=== PATIENT | female | born 1990 | race Caucasian/White ===

== ENCOUNTER 2018-10-30 22:51 | Emergency (ER) | payer OTHER, SELFPAY ==
[~2018-10-30] VITALS: Ht 144.8 cm; Wt 94.5 kg
[~2018-10-30 22:51] MED LIST: IBUP80TA PO
[2018-10-31 00:07] LABS: BASO # 0.1 10^3/uL (0.0-0.2); BASO % 0.5 % (0.0-1.0); EOS # 0.3 10^3/uL (0.0-0.50); EOS % 2.7 % (0.0-3.0); HEMATOCRIT 36.1 % (36.0-47.0); HEMOGLOBIN 11.8 g/dl (12.0-15.5); LYMPH # 3.2 10^3/uL (1.5-6.5); LYMPH % 26.5 % (24.0-44.0); MEAN CORPUSCULAR HEMOGLOBIN 28.7 pg (27.0-33.0); MEAN CORPUSCULAR HGB CONC 32.7 g/dl (32.0-36.5); MEAN CORPUSCULAR VOLUME 87.8 fl (80.0-96.0); MONO # 0.5 10^3/uL (0.0-0.8); MONO % 4.5 % (0.0-5.0); NEUTROPHILS # 7.8 10^3/uL (1.8-7.7); NEUTROPHILS % 65.4 % (36.0-66.0); PLATELET COUNT, AUTOMATED 357 10^3/uL (150-450); RED BLOOD COUNT 4.11 10^6/uL (4.00-5.40); WHITE BLOOD COUNT 11.9 10^3/uL (4.0-10.0)
[2018-10-31] MEDS ORDERED: NS 1,000 ML IV ONE (00:15)
[2018-10-31 00:30] LABS: ALBUMIN 3.1 GM/DL (3.2-5.2); ALT/SGPT 20 U/L (12-78); BILIRUBIN,DIRECT < 0.1 MG/DL (0.0-0.2); BILIRUBIN,TOTAL 0.3 MG/DL (0.2-1.0); LIPASE 110 U/L (73-393); TOTAL PROTEIN 7.1 GM/DL (6.4-8.2)
[2018-10-31] MEDS ORDERED: PANTOPRAZOLE 40MG INJ (PROTONIX) (C9113) IV ONE (00:45)
[2018-10-31] MEDS ORDERED: ONDANSETRON 4MG/2ML VIAL (J2405) IV ONE (00:45)
[2018-10-31] MEDS ORDERED: GI COCKTAIL 50ML BTL(HYOSCYAMINE/MAALOX/LIDOCAINE VISCOUS)(1:3:1) PO ONE (00:45)
[2018-10-31 01:16] LABS: INR 1.08; PROTHROMBIN TIME 13.7 SECONDS (11.8-14.0)
[2018-10-31 01:17] LABS: PARTIAL THROMBOPLASTIN TIME 31.1 SECONDS (25.0-38.4)
[2018-10-31 02:22] VITALS: BP 111/59
== END 2018-10-31 02:24 | disposition home or self-care (01) ==
LOC: M ED 22:51
DX: R00.2 Palpitations (principal); R06.02 Shortness of breath; R11.2 Nausea with vomiting, unspecified; R56.9 Unspecified convulsions; D68.51 Activated protein C resistance; Z88.8 Allergy status to other drugs, medicaments and biological substances; Z98.2 Presence of cerebrospinal fluid drainage device
CPT/HCPCS: 36415; 80047; 80076; 81001; 83690; 84702; 85025; 85379; 85610; 85730; 96361; 96374; 96375; 99284; C9113; J2405

== ENCOUNTER 2019-06-12 19:28 | Emergency (ER) | payer OTHER ==
[~2019-06-12] VITALS: Ht 144.8 cm; Wt 99.8 kg
[2019-06-12 19:28] VITALS: BP 133/62
[2019-06-12] MEDS ORDERED: METOCLOPRAMIDE INJ 10MG/2ML VIAL (J2765) IV ONE (20:00)
[2019-06-12] MEDS ORDERED: NS 500 ML IV ONE (20:00)
--- NOTE | 2019-06-12 20:37 | REPVR ---
PROCEDURE INFORMATION: Exam: CT Head Without Contrast Exam date and time: 06/12/2019 8:09 PM Age: 29 years old Clinical indication: Device placement; Cerebral fluid drainiage device or shunt; Prior surgery; Surgery date: 6+ months; Additional info: DOBBINS with shunt TECHNIQUE: Imaging protocol: Computed tomography of the head without contrast. Axial and coronal reformatted images were created and reviewed. Radiation optimization: All CT scans at this facility use at least one of these dose optimization techniques: automated exposure control; mA and/or kV adjustment per patient size (includes targeted exams where dose is matched to clinical indication); or iterative reconstruction. COMPARISON: CT Head without contrast 07/17/2018 4:02 PM FINDINGS: Brain: No CT evidence of acute intracranial hemorrhage or acute territorial infarction. No significant mass effect or midline shift. Basal cisterns patent. Ventricles: Unchanged right transfrontal ventriculostomy catheter and stable appearance of the ventricles. No hydrocephalus. Bones/joints: No acute osseous abnormality. Sinuses: Grossly unremarkable. Mastoid air cells: Grossly unremarkable. Soft tissues: Grossly unremarkable. IMPRESSION: No acute intracranial abnormality. Electronically signed by: Franklin Albrecht On 06/12/2019 20:33:53 PM
[2019-06-12 21:07] LABS: HEMATOCRIT 42.4 % (36.0-47.0); HEMOGLOBIN 13.2 g/dl (12.0-15.5); MEAN CORPUSCULAR HEMOGLOBIN 28.3 pg (27.0-33.0); MEAN CORPUSCULAR HGB CONC 31.1 g/dl (32.0-36.5); PLATELET COUNT, AUTOMATED 369 10^3/uL (150-450); RED BLOOD COUNT 4.66 10^6/uL (4.00-5.40); WHITE BLOOD COUNT 11.4 10^3/uL (4.0-10.0)
[2019-06-12 21:20] LABS: INR 1.03; PROTHROMBIN TIME 13.2 SECONDS (11.8-14.0)
[2019-06-12 21:31] LABS: BLOOD UREA NITROGEN 14 MG/DL (7-18); CALCIUM LEVEL 8.8 MG/DL (8.5-10.1); CARBON DIOXIDE LEVEL 30 MEQ/L (21-32); CHLORIDE LEVEL 108 MEQ/L (98-107); CREATININE FOR GFR 0.63 MG/DL (0.55-1.30); GLOMERULAR FILTRATION RATE > 60.0 (>60); GLUCOSE, FASTING 103 MG/DL (70-100); SODIUM LEVEL 142 MEQ/L (136-145)
[2019-06-12] MEDS ORDERED: REGL10TA6 PO (21:49)
--- NOTE | 2019-06-13 09:17 | REP ---
Clinical: Headache. Technique: Standard shunt series (six total views) Findings: A ventriculoperitoneal shunt is identified with proximal shunt extending to the region of the right lateral ventricle via right frontal bone approach. Shunt catheter courses along the right side of the calvarium, neck, the lateral chest wall and into the right lower abdomen before angling cranially with its tip extending along the dome of the liver. Catheter appears intact and without fracture or acute angulation to suggest obstruction. Impression: Ventriculoperitoneal shunt catheter as described above appears continuous and without fracture or mechanical obstruction. Electronically Signed by Ha Chow MD 06/13/2019 09:08 A
== END 2019-06-12 22:04 | disposition home or self-care (01) ==
LOC: M ED 19:28
DX: G43.909 Migraine, unspecified, not intractable, without status migrainosus (principal); H53.71 Glare sensitivity; H53.10 Unspecified subjective visual disturbances; R11.0 Nausea; Z98.2 Presence of cerebrospinal fluid drainage device; Z88.8 Allergy status to other drugs, medicaments and biological substances
CPT/HCPCS: 36415; 70450; 75809; 80048; 85027; 85610; 96361; 96374; 99284; J2765

== ENCOUNTER → 2022-01-15 | Outpatient (CLI) | payer OTHER ==
[~2022-01-15] MED LIST changes: +REGL10TA6 PO
[2022-01-15 15:23] LABS: HEMOGLOBIN 11.3 g/dl (12.0-15.5); MEAN CORPUSCULAR HEMOGLOBIN 28.8 pg (27.0-33.0); MEAN CORPUSCULAR HGB CONC 32.3 g/dl (32.0-36.5); MEAN CORPUSCULAR VOLUME 89.1 fl (80.0-96.0); PLATELET COUNT, AUTOMATED 387 10^3/uL (150-450); RED BLOOD COUNT 3.93 10^6/uL (4.00-5.40)
== END ==
LOC: M PLALAB 12:05
PROVIDERS: ATTEND Obstetrics & Gynecology Obstetrics
DX: Z34.02 Encounter for supervision of normal first pregnancy, second trimester (principal)

== ENCOUNTER 2022-12-23 12:42 | Day surgery (SDC) | payer OTHER ==
[~2022-12-23] VITALS: Ht 144.8 cm; Wt 108.7 kg
[~2022-12-23 12:42] MED LIST changes: +AMOX875T2 PO; +HYDR-3363 PO; +NS 1,000 ML IV ONE; +OMEP40CA4 PO; +PANT40TA29 PO; +TRIA55AE2 INH; +VENTAER INH; +ZOLO50TA PO; +[UNRECOGNIZED DRUG - OTHER]
[2022-12-23] MEDS ORDERED: LIDOCAINE 2% 100MG/5ML SDV (FOR ANES.) As Ordered ONE (14:19)
[2022-12-23] MEDS ORDERED: propofoL 200 MG/20 ML VIAL As Ordered ONE ×2 (14:19→14:36)
[2022-12-23 15:05] VITALS: BP 136/59; O2SAT 97
== END 2022-12-23 15:15 | disposition home or self-care (01) ==
LOC: M OPP 12:42
PROVIDERS: ATTEND Internal Medicine Gastroenterology
DX: K21.00 Gastro-esophageal reflux disease with esophagitis, without bleeding (principal); K29.70 Gastritis, unspecified, without bleeding; K22.89 Other specified disease of esophagus; Z79.2 Long term (current) use of antibiotics; Z79.51 Long term (current) use of inhaled steroids; Z79.52 Long term (current) use of systemic steroids; Z79.899 Other long term (current) drug therapy; Z88.8 Allergy status to other drugs, medicaments and biological substances

== ENCOUNTER → 2023-04-11 | Outpatient (CLI) | payer OTHER ==
[~2023-04-11] MED LIST changes: -NS 1,000 ML IV ONE
== END ==
LOC: M SLEEP HO 10:24
PROVIDERS: ATTEND Nurse Practitioner Adult Health
DX: G47.30 Sleep apnea, unspecified (principal)